=== PATIENT | female | born 1975 | race Caucasian/White ===

== ENCOUNTER 2017-04-09 03:44 | Emergency (ER) | payer SELFPAY ==
--- NOTE | 2017-04-09 03:57 | EDPHY ---
H & P Stated Complaint: left armpit pain@1800-now subsided-- @1999 blurry vision in L eye Source: Patient - Personal History LMP (Females 10-55): 15-21 Days Ago Current Tetanus/Diphtheria Vaccine: Yes Current Tetanus Diphtheria and Acellular Pertussis (TDAP): Yes Tetanus Vaccine Date: 2011 - Medical/Surgical History Hx Asthma: No Hx Chronic Respiratory Disease: No Hx Diabetes: No Hx Cardiac Disease: No Hx Renal Disease: No Hx Cirrhosis: No Hx Alcoholism: No Hx HIV/AIDS: No Hx Splenectomy or Spleen Trauma: No Other PMH: low cholestrol,. ADD, - Social History Smoking Status: Current every day smoker HPI/ROS: HPI CHIEF COMPLAINT: Multiple complaints HISTORY OF PRESENT ILLNESS: This patient very pleasant 41-year-old female she does have significant past medical history for Pot's syndrome, and extreme low cholesterol she has been told that her low-cholesterol can cause her to have risk of stroke, she presents to the emergency room at 4:15 a.m. in the morning after around 6:00 p.m. this evening she developed some left axillary pain she describes as sharp stabbing very intense 10/10 lasting 2 hours. She states that was a sharp stabbing pain in her left axilla. Did not radiate down her arm or into her chest. She denies chest pain or shortness of breath. She states the subsided on its own after she took her bra off. She then noticed approximately 2 hours later that she had some blurry vision out of her left eye. She states it seems like there is a haziness in her left eye when she looks out of it. She denies any double vision, denies loss of vision blackness or central vision loss. She states it has been persistent all night. She thought it was her contacted removed her contact however this did not help. She then placed her contacts back in and drove to the emergency room. She states she only has blurry vision out of her left eye. No loss of vision. She denies eye pain. She also notes that earlier in the evening she developed some lightheadedness/dizziness. She denies headache. She also tells me that she had some left-sided neck pain with the blurry vision. She tells me that her left axillary pain neck pain has resolved. Her only may remaining complaint is blurry vision out of her left eye. Of note here in the emergency room her neurological exam is unremarkable there is no cranial nerve deficit. She appears well. She is ambulating well moves all the extremities. Her visual acuity was for reviewed. She has no visual field cut visual nguyen are and tacked. She denies headache. However given the constellation of symptoms of blurry vision in her left eye, some left neck pain dizziness left-sided sharp stabbing axillary pain will perform blood work, EKG and a CT angio head and neck. After going online this evening and reading about stroke symptoms she decided come to the emergency room. It is noted upon arrival she is anxious. She has never had this before. Past Medical History: Pot's Syndrome, Low cholesterol Past Surgical History: Denies recent surgery Social History: Denies daily use of drugs alcohol tobacco products. Family History: Noncontributory ROS REVIEW OF SYSTEMS: A comprehensive 10 point review of systems is otherwise negative aside from elements mentioned in the history of present illness. Exam Constitutional appears well nontoxic triage nursing summary reviewed, vital signs reviewed, awake/alert. Eyes normal conjunctivae and sclera, EOMI, PERRLA. Left eye exam: Visual acuity reviewed. Extraocular movements are intact pupils equal round react to light. Posterior eye exam without dilatation is unremarkable. Conjunctiva normal. No flare to the anterior chamber. Soft globe. Right Eye: normal. HENT normal inspection, atraumatic, moist mucus membranes, no epistaxis, neck supple/ no meningismus, no raccoon eyes. Respiratory clear to auscultation bilaterally, normal breath sounds, no respiratory distress, no wheezing. Cardiovascular rate normal, regular rhythm, no murmur, no edema, distal pulses normal. Gastrointestinal soft, non-tender, no rebound, no guarding, normal bowel sounds, no distension, no pulsatile mass. Genitourinary no CVA tenderness. Musculoskeletal no midline vertebral tenderness, full range of motion, no calf swelling, no tenderness of extremities, no meningismus, good pulses, neurovascularly intact. Skin pink, warm, & dry, no rash, skin atraumatic. Neurologic awake, alert and oriented x 3, AAOx3, moves all 4 extremities equally, motor intact, sensory intact, CN II-XII intact, normal cerebellar, normal vision, normal speech. Psychiatric normal mood/affect. Heme/Lymph/Immune no lymphadenopathy. Differential Diagnosis: Includes but is not limited to in a particular order, CVA, TIA, intracranial bleed which I doubt, aneurysm, central artery occlusion central vein occlusion, retinal detachment, vitreous hemorrhage, glaucoma, carotid dissection,, vertebral artery dissection occlusion. Medical Decision Making: Plan for this patient CT angio head and neck, check blood work, gentle IV hydration, EKG and troponin, also perform an eye exam. And will re-evaluate from there. Re-evaluation: EKG interpretation by me on record in [employer] system. Impression time of EKG 4:42 a.m., this is sinus rhythm rate of 81 no acute ischemia appreciated this EKG. Unremarkable EKG. CT scan of the angiogram head and neck. The results of the study are negative for acute vessel abnormality specifically no dissection, aneurysm or thrombus, no bleed. Unremarkable CT angiogram head and neck. The study was read by Dr. Gates I viewed the images myself on the PACS system. [id number]; I spoke with [facility] Dr. Chacko. Recommends MRI with and without contrast of the brain and orbits rule out optic neuritis or optic inflammation. He recommends this getting this done in the emergency room prior to being discharged and following up with outpatient Ophthalmology. I will order this. I will update the patient. 0607AM: I have updated the patient about need for MRI. She is agreeable for this plan. She understands that she will have an MRI of her brain and orbits rule out optic neuritis or other pathological lesion. If this MRIs normal she could follow up outpatient with Ophthalmology. I provided the contact information for her. She understands she when she leaves here assuming her MRI is normal she needs to contact them for follow-up care. Should be seen today. She understands. 0700AM: Additionally have signed this patient over to Dr. Aura Hill at 7: 00 a.m. shift change to follow up the MRI results. (Gerardo Jimenez) Constitutional: Initial Vital Signs Temperature (C) 36.8 C 04/09/17 03:46 Heart Rate 85 04/09/17 03:46 Respiratory Rate 18 04/09/17 03:46 Blood Pressure 125/94 H 04/09/17 03:46 O2 Sat (%) 95 04/09/17 03:46 O2 Delivery Mode Room Air Allergies/Adverse Reactions: Sulfa (Sulfonamide Antibiotics) Allergy (Mild, Verified 02/02/11 16:46) Anaphylaxis Home Medications: Medication Instructions Recorded Amphet Asp and D/Amphet [Adderall 5 mg PO BID 02/02/11 10 mg] Medical Decision Making ED Course/Re-evaluation: I assumed care of this patient from Dr. Jimenez at 7:00 a.m.. MRI of the brain was performed and reported to me as negative/normal. I relayed these results to the patient. She continues to complain of blurred vision. She has had an extensive workup in the emergency department and I do not recommend further emergency department evaluation at this time. She is referred to the on-call coremaker machine for further evaluation of her vision. (Aura Hill) - Data Points Laboratory Results: Laboratory Results 04/09/17 04:35 04/09/17 04:35 Medications Given: Discontinued Medications Sodium Chloride (Ns) 1,000 mls @ 0 mls/hr IV ONCE ONE; Wide Open PRN Reason: Protocol Stop: 04/09/17 04:23 Last Admin: 04/09/17 04:47 Dose: 1,000 mls Departure - Departure Disposition: Home, Routine, Self-Care Clinical Impression: Hypothyroidism, Blurred vision, left eye Condition: Good Instructions: Hypothyroidism (ED), Blurred Vision (ED) Additional Instructions: 1. Please follow-up about your thyroid with her primary care doctor. 2. Return emergency room if you have any worsening symptoms questions or concerns. 3. Additionally I recommend he follow up with Ophthalmology about the blurry vision out of her left eye. Please call their make an appointment today. She be seen today. Referrals: Chelly Wall PA [Primary Care Provider] - As per Instructions Jo-Ann Plummer MD [Non Staff Provider ()] - As per Instructions
[2017-04-09] MEDS ORDERED: NS 1,000 ML IV ONE (04:22)
[2017-04-09 04:43] LABS: % IMMATURE GRANULYOCYTES 0.3 % (0.0-1.1); ABSOLUTE IMMATURE GRANULOCYTES 0.02 10^3/uL (0.00-0.10); ADD DIFF? NO; ADD MORPH? NO; ADD SCAN? NO; ATYPICAL LYMPHOCYTE FLAG 0 (0-99); FRAGMENT RBC FLAG 0 (0-99); HEMATOCRIT 40.3 % (38.0-47.0); HEMOGLOBIN 14.2 g/dL (12.6-16.3); LEFT SHIFT FLG 0 (0-99); LIPEMIA HEMOLYSIS FLAG 90 (0-99); MEAN CELL HEMOGLOBIN 31.1 pg (27.9-34.1); MEAN CELL HEMOGLOBIN CONCENTR. 35.2 g/dL (32.4-36.7); MEAN CELL VOLUME 88.2 fL (81.5-99.8); MEAN PLATELET VOLUME 10.9 fL (8.7-11.7); PLATELET CLUMPS FLAG 0 (0-99); PLATELET COUNT 220 10^3/uL (150-400); RED BLOOD CELL COUNT 4.57 10^6/uL (4.18-5.33); RED CELL DISTRIBUTION WIDTH 12.5 % (11.5-15.2)
[2017-04-09 04:52] LABS: INR 1.04 (0.83-1.16); PROTIME(PATIENT) 13.5 SEC (12.0-15.0)
[2017-04-09 04:53] LABS: ALANINE AMINOTRANSFERASE 37 IU/L (9-52); ALBUMIN 4.5 g/dL (3.5-5.0); ALKALINE PHOSPHATASE 39 IU/L (38-126); ANION GAP 15 mEq/L (8-16); APTT 34.2 SEC (23.0-38.0); ASPARTATE AMINOTRANSFERASE 32 IU/L (14-46); BILIRUBIN-CONJUGATED 0.2 mg/dL (0.0-0.5); BILIRUBIN-UNCONJUGATED 0.8 mg/dL (0.0-1.1); CALCIUM 9.1 mg/dL (8.5-10.4); CARBON DIOXIDE 19 mEq/l (22-31); CHLORIDE 109 mEq/L (97-110); CREATININE 0.7 mg/dL (0.6-1.0); GLOMERULAR FILTRATION RATE > 60; GLUCOSE 76 mg/dL (70-100); MAGNESIUM 2.1 mg/dL (1.6-2.3); POTASSIUM 3.8 mEq/L (3.5-5.2); SODIUM 143 mEq/L (134-144); TOTAL PROTEIN 7.4 g/dL (6.3-8.2)
[2017-04-09] MEDS ORDERED: IOPAMIDOL (ISOVUE 370) 100 ML BTL IV ONE (05:00)
[2017-04-09 05:05] LABS: CREATINE KINASE-MB FRACTION 1.59 ng/mL (0-3.19); TROPONIN I < 0.012 ng/mL (0-0.034)
[2017-04-09] MEDS ORDERED: GADOBUTROL 10 ML VIAL IVP ONE (06:25)
[2017-04-09 07:31] VITALS: RESP 16
[2017-04-09 09:04] VITALS: BP 109/65; PULSE 69; TEMP 97.7; O2SAT 97
== END 2017-04-09 09:08 | disposition home or self-care (01) ==
DX: E03.9 Hypothyroidism, unspecified (principal); H53.8 Other visual disturbances; F17.200 Nicotine dependence, unspecified, uncomplicated; E86.9 Volume depletion, unspecified
CPT/HCPCS: A9585; Q9967